=== PATIENT | female | born 1950 | race Caucasian/White ===

== ENCOUNTER 2016-09-03 07:53 | Day surgery (SDC) | payer MEDICARE, OTHER ==
[~2016-09-03] VITALS: Ht 175.3 cm; Wt 71.5 kg
[~2016-09-03 07:53] MED LIST: ACET-171 PO; ASPI-973 PO; CALC600T12 PO; CHOL400T3 PO; FOLI0.4T2 PO; MULT-1018 PO; NAPR220C11 PO; OMEG300C3 PO; PRED15SO PO; Sodium Chloride LOK Flush 10 mL Syringe IV PRN; fentaNYL-PF 50 mCg/mL 2 mL Inj IVPUSH PRN
[2016-09-03 08:16] VITALS: BP 115/65; PULSE 65; RESP 14; O2SAT 98
[2016-09-03] MEDS ORDERED: VALA500T2 PO (08:21)
[2016-09-03] MEDS: 0.9% Sodium Chloride 1,000 ML IV SCH ×2 (08:52→09:18)
[2016-09-03 09:32] VITALS: BP 95/54; PULSE 60; RESP 16; O2SAT 99
[2016-09-03 09:42] VITALS: BP 92/52; PULSE 59; RESP 16; O2SAT 100
[2016-09-03 09:52] VITALS: BP 92/53; PULSE 56; RESP 14; O2SAT 100
[2016-09-03 10:02] VITALS: BP 95/63; PULSE 67; RESP 16; O2SAT 100
--- NOTE | 2016-09-03 10:26 | ENDO ---
[address] [address] ENDOSCOPY PROCEDURE PATIENT: VICK SEVERINO : 1950 MR#: [id number] ADMIT: 09/03/2016 JOB ID: [id number] PRIMARY PROVIDER: Amber Rae MD PROCEDURE: Esophagogastroduodenoscopy with biopsies, and colonoscopy. INDICATIONS: A 66-year-old female with intermittent reflux. Right now, she is not terribly bothered by this. It started when she was having a lot of throat clearing as well. She is not using any therapy to combat reflux presently. She additionally presents for colon cancer screening. EQUIPMENT: GIF-H180-J, and a PCF-H180-AL. SEDATION: 6 mg Versed and 75 mcg fentanyl. COMPLICATIONS: None identified. BOWEL PREPARATION: Excellent. PROCEDURE INFORMATION: After the risks and benefits were explained, written and verbal informed consent was obtained. The patient was brought into the endoscopy suite and placed into the left lateral decubitus position. Sedation was achieved using the above-stated medications with the addition of oxygen via nasal cannula. The scope was introduced into the mouth through the bite block, and advanced to the duodenum. I did not advance all the way into the second portion based on the severely J-shaped stomach. The scope was withdrawn. Retroflexed views were accomplished in the stomach. The stomach was decompressed, the scope removed from the patient who tolerated the procedure well. The patient was then turned around. A digital rectal examination accomplished. No significant pathology apart from some mild internal, external, nonbleeding, nonthrombosed hemorrhoids. The scope was introduced into the rectum and advanced to the cecum as identified by the appendiceal orifice and ileocecal valve. The scope was slowly withdrawn to carefully examine the mucosa for any defects or lesions. Multiple direct views were made through the dentate line for exclusion of pathology. The colon was decompressed, the scope removed from the patient who tolerated the procedure well. FINDINGS: 1. Duodenum: No pathology identified in the first portion. 2. Stomach: J-shaped stomach. Scattered erosive changes throughout the antrum and even in the body, consistent with periodic NSAID use. Otherwise, retroflexed views based on the configuration of the stomach were a little challenging but possible. No significant pathology appreciated at the level of the GEJ. 3. Esophagus: The GEJ was at 37 cm from the incisors. Small sliding hiatal hernia was noted. No endoscopic suggestion of Wood's. There was, however, LA grade A erosive esophagitis in the 12 o'clock location. In the proximal esophagus, there was a small, what is probably going to metal turner to be a squamous papilloma, removed with cold forceps at the 23 cm from the incisors isabel. 4. Colon: No significant polyps or mass lesions. Some mild diverticulosis was seen in the left colon. ENDOSCOPIC DIAGNOSES: 1. J-shaped stomach. 2. Small sliding hiatal hernia. 3. LA grade A erosive esophagitis. 4. Proximal small esophageal nodule biopsied (this looked like it had been completely removed after one bite). 5. Mild hemorrhoids. 6. Diverticulosis. RECOMMENDATIONS: 1. Await histopathology (gastric biopsies were taken for exclusion of Helicobacter or any other underlying histopathology). 2. No surveillance EGD is anticipated. 3. Repeat colonoscopy 10 years' time. 4. The patient is encouraged to engage in a more proactive antireflux regimen. 5. We will see how she is getting on in the clinic followup.
--- NOTE | 2016-09-04 14:12 | PATH ---
SURGICAL PATHOLOGY Attending Physician:Kobi Lora CASE STATUS: Signed Out PATIENT NAME: VICK SEVERINO PID: [id number] : 1950 DATE COLLECTED:09/03/2016 15:25 SPECIMEN: 1: Gastric, Biopsy 2: Esophagus, Biopsy CLINICAL HISTORY: GERD, GASTRIC EROSIONS 1). GASTRIC BIOPSY 2). PROXIMAL ESOPHAGUS BIOPSY @ 23CM FINAL DIAGNOSIS: 1. Gastric Biopsy: Gastric antrum with mild chronic gastritis. Negative for Helicobacter organisms. Negative for intestinal metaplasia. No evidence of malignancy or dysplasia. 2. Proximal Esophagus at 23 cm, Biopsy: Benign squamous papilloma. No evidence of malignancy or dysplasia. Negative for intestinal metaplasia. ICD10: K29.70 GROSS DESCRIPTION: The specimen is received in two formalin filled containers labeled with the patient's name. 1). The specimen is sublabeled "gastric" and consists of a 0.3 x 0.3 x 0.3 CM portion of tissue which is entirely submitted in cassette 1A. 2). The specimen is sublabeled "proximal esophagus at 23 CM" and consists of a 0.2 x 0.2 x 0.1 CM portion of tissue which is entirely submitted in cassette 2A. 09/03/2016 [facility] ICD-9 CODES: CPT CODES: 1: 43033 2: 04787 Electronically Signed Out Shankar Bean MD [facility] [address], [place] [address] Technical component performed at [facility], [facility] [address], [place], [address]
== END 2016-09-03 23:59 | disposition home or self-care (01) ==
LOC: END 07:53
PROVIDERS: ATTEND Internal Medicine Gastroenterology
DX: Z12.11 Encounter for screening for malignant neoplasm of colon (principal); K57.30 Diverticulosis of large intestine without perforation or abscess without bleeding; K64.9 Unspecified hemorrhoids; K21.9 Gastro-esophageal reflux disease without esophagitis; K44.9 Diaphragmatic hernia without obstruction or gangrene; K20.9 Esophagitis, unspecified; K29.50 Unspecified chronic gastritis without bleeding; Z79.82 Long term (current) use of aspirin; Z79.1 Long term (current) use of non-steroidal anti-inflammatories (NSAID)
CPT/HCPCS: 43239; 88305; 99153; G0121; G0500; J7030